=== PATIENT | male | born 1965 | race Caucasian/White ===

== ENCOUNTER 2022-09-18 08:43 | Outpatient (CLI) | payer OTHER ==
[2022-09-18] MEDS ORDERED: Iopamidol 300 61% 100 ML VIAL FS ONE (11:21)
== END 2022-09-18 08:44 | disposition home or self-care (01) ==
LOC: CSHCT 08:43
PROVIDERS: ATTEND Internal Medicine Hematology & Oncology
DX: C20 Malignant neoplasm of rectum (principal); C78.7 Secondary malignant neoplasm of liver and intrahepatic bile duct; C79.51 Secondary malignant neoplasm of bone; K80.20 Calculus of gallbladder without cholecystitis without obstruction; Z93.3 Colostomy status; N28.1 Cyst of kidney, acquired
CPT/HCPCS: 71260; 74177

== ENCOUNTER 2023-03-29 09:05 | Outpatient (CLI) | payer OTHER ==
[2023-03-29] MEDS ORDERED: Iopamidol 300 61% 100 ML VIAL FS ONE (10:03)
== END 2023-03-29 09:06 | disposition home or self-care (01) ==
LOC: CSHCT 09:05
PROVIDERS: ATTEND Internal Medicine Hematology & Oncology
DX: C20 Malignant neoplasm of rectum (principal); C78.7 Secondary malignant neoplasm of liver and intrahepatic bile duct; R97.0 Elevated carcinoembryonic antigen [CEA]; K83.8 Other specified diseases of biliary tract; K63.89 Other specified diseases of intestine
CPT/HCPCS: 71260; 74177; 82565; Q9967

== ENCOUNTER 2023-08-09 08:43 | Outpatient (CLI) | payer BC | END 2023-08-09 08:44 | disposition home or self-care (01) | LOC: CSHCT 08:43 | PROVIDERS: ATTEND Nurse Practitioner Family | DX: C20 Malignant neoplasm of rectum (principal); C78.7 Secondary malignant neoplasm of liver and intrahepatic bile duct; R97.0 Elevated carcinoembryonic antigen [CEA] | CPT/HCPCS: 71260; 74177 ==

== ENCOUNTER 2024-04-06 07:18 | Outpatient (CLI) | payer BC ==
[2024-04-06] MEDS ORDERED: Iopamidol 300 61% 100 ML VIAL FS ONE (09:34)
== END 2024-04-06 07:19 | disposition home or self-care (01) ==
LOC: CSHCT 07:18
PROVIDERS: ATTEND Specialist
DX: K43.5 Parastomal hernia without obstruction or gangrene (principal); K62.89 Other specified diseases of anus and rectum; K63.89 Other specified diseases of intestine; C78.7 Secondary malignant neoplasm of liver and intrahepatic bile duct; Z93.3 Colostomy status
CPT/HCPCS: 74177; Q9967

== ENCOUNTER 2024-10-02 08:27 | Outpatient (CLI) | payer BC ==
[2024-10-02] MEDS ORDERED: Iopamidol 300 61% 100 ML VIAL FS ONE (13:48)
== END 2024-10-02 08:28 | disposition home or self-care (01) ==
LOC: CSHCT 08:27
PROVIDERS: ATTEND Internal Medicine Hematology & Oncology
DX: C20 Malignant neoplasm of rectum (principal); C78.7 Secondary malignant neoplasm of liver and intrahepatic bile duct
CPT/HCPCS: 71260; 74177

== ENCOUNTER 2025-06-02 08:16 | Outpatient (CLI) | payer BC ==
[2025-06-02] MEDS ORDERED: Iopamidol 300 61% 100 ML VIAL FS ONE (12:38)
== END 2025-06-02 08:17 | disposition home or self-care (01) ==
LOC: CSHCT 08:16
PROVIDERS: ATTEND Internal Medicine Hematology & Oncology
DX: C20 Malignant neoplasm of rectum (principal); C78.7 Secondary malignant neoplasm of liver and intrahepatic bile duct
CPT/HCPCS: 71260; 74177